=== PATIENT | male | born 1980 | race American Indian/Alaskan Native ===

== ENCOUNTER 2017-01-05 10:19 | Emergency (ER) | payer MEDICARE ==
[2017-01-05 11:24] LABS: Basophils % (Auto) 0.5 % (0.0-1.8); Eosinophils % (Auto) 1.4 % (0.0-4.3); Hematocrit 44.3 % (35.5-45.6); Mean Corpuscular HGB Conc 34 % (32-34); Mean Corpuscular Hemoglobin 30 pg (28-32); Mean Corpuscular Volume 89 fl (84-94); Platelet Count 198 K/mm3 (140-440); Red Cell Distribution Width 12.6 % (13.2-15.2); White Blood Count 6.4 K/mm3 (4.5-11.0)
[2017-01-05 11:37] LABS: Anion Gap 18 mmol/L; Blood Urea Nitrogen 12 mg/dL (9-20); Calcium 9.7 mg/dL (8.4-10.2); Carbon Dioxide 25 mmol/L (22-30); Chloride 101.7 mmol/L (98-107); Glucose 182 mg/dL (75-100); Potassium 4.6 mmol/L (3.6-5.0); Sodium 140 mmol/L (137-145)
--- NOTE | 2017-01-05 11:48 | Emergency Department Report ---
HPI - General Chief Complaint: Hyperglycemia Time Seen by Provider: 01/05/17 11:48 - HPI HPI: Patient here reports that his blood sugar was 200 home and he usually takes metformin 500 mg twice a day but he ran out. He denies any nausea vomiting or diarrhea. He also states that his ankles have been swelling for the past month on and off. Patient states that leg was terrible). He denies any swelling or redness at present. Reports that he has 2 spots to the top of his left big toe and third toe. He is wearing braces on ankle to keep swelling down. Blood sugar in triage is 178. She denies any increased urination or increased thirst. He said he sees Dr. Kaplan and the last time he saw him was 2 months ago. ED Past Medical Hx - Past Medical History Previous Medical History?: Yes Hx Diabetes: Yes Hx Psychiatric Treatment: Yes Additional medical history: UNKNOWN - Surgical History Past Surgical History?: No - Family History Family history: diabetes, hypertension - Social History Smoking Status: Former Smoker Substance Use Type: None - Medications Home Medications: Home Medications Medication Instructions Recorded Confirmed Last Taken Type Cephalexin [Keflex] 500 mg PO Q8HR #21 cap 01/05/17 Unknown Rx metFORMIN [Glucophage] 500 mg PO Q12H #60 tablet 01/05/17 Unknown Rx ED Review of Systems ROS: Stated complaint: HYPERGLYCEMIA Other details as noted in HPI Comment: All other systems reviewed and negative Constitutional: denies: chills, fever Eyes: denies: eye pain, vision change Respiratory: no symptoms reported Cardiovascular: denies: chest pain, palpitations, edema, syncope Gastrointestinal: denies: abdominal pain, nausea, vomiting, diarrhea, hematochezia Musculoskeletal: denies: back pain, joint swelling, arthralgia, myalgia Skin: rash (to left first through third toe) Neurological: denies: headache, weakness, numbness, paresthesias, confusion, abnormal gait, other Physical Exam - Physical Exam Vital Signs: Vital Signs 01/05/17 10:51 Temperature 97.8 F Pulse Rate 94 H Respiratory 18 Rate Blood Pressure 128/82 O2 Sat by Pulse 99 Oximetry General: This is a 36-year-old male well-nourished well-developed in no acute distress. Physical Exam: Head: Normocephalic atraumatic Mouth: Moist, no pharyngeal exudate or erythema. Uvula is midline and oral airway is patent. No facial swelling. No peritonsillar abscesses. Neck: Supple, no C-spine tenderness, no tracheal deviation. Nontender to palpate. no adenopathy Abdomen: Soft, nontender to palpate in all quadrants, normal bowel sounds in all quadrant and negative CVA tenderness bilaterally. Back: No vertebral or paraspinal tenderness. No saddle anesthesia. Patient able to ambulate without any difficulties. Negative SLR bilaterally. Neurological: GCS of 15, alert and oriented 3. Speech is clear and fluid. Normal gait. No motor or sensory deficit. Normal reflexes. No facial drooping. No pronator drift and negative Romberg. Eyes: Bilateral pupils equal and reactive to light, bilateral EOM intact. Bilateral sclera and conjunctiva without injection. Normal accommodation. Lungs: Clear to auscultate bilaterally no rhonchi wheezes or rales. Normal work of breathing extremity; No CCE. +2 pulses. No neurovascular compromise Cardiovascular: S1-S2, regular rate rhythm. No murmurs. Skin: Noted stage I ulcer less than 2 mm to left great and third toe. No drainage noted. Erythema without swelling. Psych: Normal mood and behavior ED Course Vital Signs 01/05/17 10:51 Temperature 97.8 F Pulse Rate 94 H Respiratory 18 Rate Blood Pressure 128/82 O2 Sat by Pulse 99 Oximetry - Reevaluation(s) Reevaluation #1: 01/05/17 13:15 Patient here complaining of high blood sugar and it was out of his blood pressure medication. Also complaining of tooth spots on his left third and first toe. He does have a primary care physician is Dr. Kaplan. ED Medical Decision Making - Lab Data Result diagrams: 01/05/17 11:03 01/05/17 11:03 Lab Results 01/05/17 01/05/17 01/05/17 Range/Units 11:03 11:03 11:03 WBC 6.4 (4.5-11.0) K/mm3 RBC 5.00 (3.65-5.03) M/mm3 Hgb 15.0 (11.8-15.2) gm/dl Hct 44.3 (35.5-45.6) % MCV 89 (84-94) fl MCH 30 (28-32) pg MCHC 34 (32-34) % RDW 12.6 L (13.2-15.2) % Plt Count 198 (140-440) K/mm3 Lymph % (Auto) 24.5 (13.4-35.0) % [place] % (Auto) 11.5 H (0.0-7.3) % Eos % (Auto) 1.4 (0.0-4.3) % Baso % (Auto) 0.5 (0.0-1.8) % Lymph # 1.6 (1.2-5.4) K/mm3 [place] # 0.7 (0.0-0.8) K/mm3 Eos # 0.1 (0.0-0.4) K/mm3 Baso # 0.0 (0.0-0.1) K/mm3 Seg Neutrophils % 62.1 (40.0-70.0) % Seg Neutrophils # 4.0 (1.8-7.7) K/mm3 VBG pH 7.365 (7.320-7.420) Sodium 140 (137-145) mmol/L Potassium 4.6 (3.6-5.0) mmol/L Chloride 101.7 (98-107) mmol/L Carbon Dioxide 25 (22-30) mmol/L Anion Gap 18 mmol/L BUN 12 (9-20) mg/dL Creatinine 0.8 (0.8-1.5) mg/dL Estimated GFR > 60 ml/min BUN/Creatinine Ratio 15.00 % Glucose 182 H (75-100) mg/dL Calcium 9.7 (8.4-10.2) mg/dL Urine Color (Yellow) Urine Turbidity (Clear) Urine pH (5.0-7.0) Ur Specific [place] (1.003-1.030) Urine Protein (Negative) mg/dL Urine Glucose (UA) (Negative) mg/dL Urine Ketones (Negative) mg/dL Urine Blood (Negative) Urine Nitrite (Negative) Urine Bilirubin (Negative) Urine Urobilinogen (<2.0) mg/dL Ur Leukocyte Esterase (Negative) Urine WBC (Auto) (0.0-6.0) /HPF Urine RBC (Auto) (0.0-6.0) /HPF U Epithel Cells (Auto) (0-13.0) /HPF Urine Mucus /HPF 01/05/17 Range/Units 11:09 WBC (4.5-11.0) K/mm3 RBC (3.65-5.03) M/mm3 Hgb (11.8-15.2) gm/dl Hct (35.5-45.6) % MCV (84-94) fl MCH (28-32) pg MCHC (32-34) % RDW (13.2-15.2) % Plt Count (140-440) K/mm3 Lymph % (Auto) (13.4-35.0) % [place] % (Auto) (0.0-7.3) % Eos % (Auto) (0.0-4.3) % Baso % (Auto) (0.0-1.8) % Lymph # (1.2-5.4) K/mm3 [place] # (0.0-0.8) K/mm3 Eos # (0.0-0.4) K/mm3 Baso # (0.0-0.1) K/mm3 Seg Neutrophils % (40.0-70.0) % Seg Neutrophils # (1.8-7.7) K/mm3 VBG pH (7.320-7.420) Sodium (137-145) mmol/L Potassium (3.6-5.0) mmol/L Chloride (98-107) mmol/L Carbon Dioxide (22-30) mmol/L Anion Gap mmol/L BUN (9-20) mg/dL Creatinine (0.8-1.5) mg/dL Estimated GFR ml/min BUN/Creatinine Ratio % Glucose (75-100) mg/dL Calcium (8.4-10.2) mg/dL Urine Color Yellow (Yellow) Urine Turbidity Clear (Clear) Urine pH 5.0 (5.0-7.0) Ur Specific [place] 1.016 (1.003-1.030) Urine Protein <15 mg/dl (Negative) mg/dL Urine Glucose (UA) >=500 (Negative) mg/dL Urine Ketones Neg (Negative) mg/dL Urine Blood Neg (Negative) Urine Nitrite Neg (Negative) Urine Bilirubin Neg (Negative) Urine Urobilinogen < 2.0 (<2.0) mg/dL Ur Leukocyte Esterase Neg (Negative) Urine WBC (Auto) 1.0 (0.0-6.0) /HPF Urine RBC (Auto) 1.0 (0.0-6.0) /HPF U Epithel Cells (Auto) 1.0 (0-13.0) /HPF Urine Mucus Few /HPF - Medical Decision Making ED course: Patient with elevated blood sugar with diabetes. He is Also stage 1 ulcer to his left foot. Patient is out of his metformin. I discussed with him all his lab results urinalysis and told him that it was stable. Patient given first dose of metformin today 500 mg in emergency room. I discussed with him that he will need to follow-up with Dr. Kaplan to call upper and discharged to schedule appointment for follow-up visit diabetes. I Also instructed him that he needs to call Dr. Shah is a lead sustainability specialist to manage his ulcer on his toes. Ulcers to left first and third toe cleansed with saline and left open to air. Patient discharged home with prescription for metformin and Keflex. Critical care attestation.: If time is entered above; I have spent that time in minutes in the direct care of this critically ill patient, excluding procedure time. ED Disposition Clinical Impression: Pressure ulcer of toe of left foot, stage 1 Diabetes mellitus with hyperglycemia Qualifiers: Diabetes mellitus type: type 2 Diabetes mellitus milieu coordinator insulin use: without longterm use Qualified Code(s): E11.65 - Type 2 diabetes mellitus with hyperglycemia Disposition: DISCHARGED TO HOME OR SELFCARE Is pt being admited?: No Does the pt Need Aspirin: No Condition: Stable Instructions: Diabetes Mellitus Type 2 in Adults (ED), Diabetic Hyperglycemia ( ED), Managing Diabetes During Sick Days (ED), How to Prevent Pressure Ulcers (ED ), Pressure Ulcer (ED), Acute Wound Care (ED) Additional Instructions: Please keep affected area to toes on left foot clean and dry. Follow up with your primary care physician and also home theater specialist as instructed Take antibiotic as prescribed. Follow-up with primary care doctor to manage her diabetes. Prescriptions: Cephalexin [Keflex] 500 mg PO Q8HR #21 cap metFORMIN [Glucophage] 500 mg PO Q12H #60 tablet Referrals: KHUSHBU KAPLAN JR, MD [Staff Physician] - 01/08/17 DEDE SHAH DPM [Staff Physician] - 01/08/17 Forms: Work/School Release Form(ED)
[2017-01-05] MEDS ORDERED: GLUCOPHAGE PO ONE (11:51)
[2017-01-05 12:00] LABS: Bilirubin,Urine NEG (Negative); Blood,Urine NEG (Negative); Ketones,Urine NEG (Negative); Leukocyte Esterase,Urine NEG (Negative); Mucus,Urine FEW /HPF; Nitrite,Urine NEG (Negative); Protein,Urine <15 mg/dL mg/dL (Negative); Urobilinogen,Urine < 2.0 mg/dL (<2.0)
[2017-01-05 13:41] VITALS: BP 122/80
== END 2017-01-05 13:42 | disposition home or self-care (01) ==
LOC: ED 10:19
DX: L89.891 Pressure ulcer of other site, stage 1 (principal); L89.621 Pressure ulcer of left heel, stage 1; Z87.891 Personal history of nicotine dependence; E11.65 Type 2 diabetes mellitus with hyperglycemia
CPT/HCPCS: 36415; 80048; 81001; 82805; 82962; 84600; 85025; 99284

== ENCOUNTER 2017-01-07 20:58 | Emergency (ER) | payer MEDICARE ==
[2017-01-07 21:18] VITALS: BP 142/88
[2017-01-07 21:43] LABS: Basophils % (Auto) 0.5 % (0.0-1.8); Eosinophils % (Auto) 0.9 % (0.0-4.3); Hematocrit 43.9 % (35.5-45.6); Hemoglobin 14.6 gm/dl (11.8-15.2); Mean Corpuscular HGB Conc 33 % (32-34); Mean Corpuscular Hemoglobin 30 pg (28-32); Mean Corpuscular Volume 90 fl (84-94); Platelet Count 205 K/mm3 (140-440); Red Blood Count 4.85 M/mm3 (3.65-5.03); Red Cell Distribution Width 12.7 % (13.2-15.2); White Blood Count 8.4 K/mm3 (4.5-11.0)
[2017-01-07 22:04] LABS: Alanine Aminotransferase 58 units/L (7-56); Albumin/Globulin Ratio 1.2 %; Alkaline Phosphatase 101 units/L (35-129); Anion Gap 19 mmol/L; BUN/Creatinine Ratio 21.81; Blood Urea Nitrogen 24 mg/dL (9-20); Calcium 8.9 mg/dL (8.4-10.2); Carbon Dioxide 22 mmol/L (22-30); Chloride 97.8 mmol/L (98-107); Glucose 156 mg/dL (75-100); Lipase 32 units/L (13-60); Potassium 4.1 mmol/L (3.6-5.0); Sodium 135 mmol/L (137-145); Total Protein 7.3 g/dL (6.3-8.2)
== END 2017-01-07 21:30 | disposition left against medical advice (07) ==
LOC: ED 20:58
DX: K92.1 Melena (principal); Z53.21 Procedure and treatment not carried out due to patient leaving prior to being seen by health care provider
CPT/HCPCS: 36415; 80053; 83690; 85025

== ENCOUNTER 2018-06-02 12:16 | Emergency (ER) | payer MEDICARE ==
[2018-06-02 12:28] VITALS: BP 147/100
[2018-06-02] MEDS ORDERED: CLEOCIN 900 MG/50 mL 900 MG/50 ML BAG IV ONE (13:13)
[2018-06-02 13:35] LABS: Basophils % (Auto) 0.3 % (0.0-1.8); Eosinophils # (Auto) 0.1 K/mm3 (0.0-0.4); Eosinophils % (Auto) 0.4 % (0.0-4.3); Hematocrit 48.5 % (35.5-45.6); Hemoglobin 16.3 gm/dl (11.8-15.2); Lymphocytes # (Auto) 1.5 K/mm3 (1.2-5.4); Lymphocytes % (Auto) 10.7 % (13.4-35.0); Mean Corpuscular HGB Conc 34 % (32-34); Mean Corpuscular Hemoglobin 30 pg (28-32); Mean Corpuscular Volume 88 fl (84-94); Monocytes # (Auto) 1.3 K/mm3 (0.0-0.8); Monocytes % (Auto) 9.4 % (0.0-7.3); Platelet Count 256 K/mm3 (140-440); Red Blood Count 5.49 M/mm3 (3.65-5.03); Red Cell Distribution Width 12.7 % (13.2-15.2)
--- NOTE | 2018-06-02 13:38 | Emergency Department Report ---
ED ENT HPI - General Chief complaint: Dental/Oral Stated complaint: TOOTH BROKEN/FACE SWOLLEN Time Seen by Provider: 06/02/18 12:57 Source: patient Mode of arrival: Ambulatory Limitations: No Limitations - History of Present Illness Initial comments: 37 yo M w/ swelling to right lower jaw. Reports associated toothache. Difficult to determine when symptoms began, pt is poor historian. MD complaint: tooth pain -: unknown Location: other (lower molars) Severity: moderate Quality: aching Improves with: none - Related Data Previous Rx's Medication Instructions Recorded Last Taken Type cephALEXin [Keflex] 500 mg PO Q8HR #21 cap 01/05/17 Unknown Rx metFORMIN [Glucophage] 500 mg PO Q12H #60 tablet 01/05/17 Unknown Rx Naproxen [Naprosyn] 500 mg PO BID #20 tablet 06/02/18 Unknown Rx Penicillin V Potassium 500 mg PO TID 10 Days #30 tablet 06/02/18 Unknown Rx Allergies Allergy/AdvReac Type Severity Reaction Status Date / Time No Known Allergies Allergy Unverified 06/13/16 12:12 ED Dental HPI - General Chief complaint: Dental/Oral Stated complaint: TOOTH BROKEN/FACE SWOLLEN Time Seen by Provider: 06/02/18 12:57 Source: patient Mode of arrival: Ambulatory Limitations: No Limitations - Related Data Previous Rx's Medication Instructions Recorded Last Taken Type cephALEXin [Keflex] 500 mg PO Q8HR #21 cap 01/05/17 Unknown Rx metFORMIN [Glucophage] 500 mg PO Q12H #60 tablet 01/05/17 Unknown Rx Naproxen [Naprosyn] 500 mg PO BID #20 tablet 06/02/18 Unknown Rx Penicillin V Potassium 500 mg PO TID 10 Days #30 tablet 06/02/18 Unknown Rx Allergies Allergy/AdvReac Type Severity Reaction Status Date / Time No Known Allergies Allergy Unverified 06/13/16 12:12 ED Review of Systems ROS: Stated complaint: TOOTH BROKEN/FACE SWOLLEN Other details as noted in HPI Constitutional: denies: fever ENT: dental pain Gastrointestinal: denies: nausea, vomiting ED Past Medical Hx - Past Medical History Hx Diabetes: Yes Hx Psychiatric Treatment: Yes (BIPOLOR DEPRESSION) Additional medical history: UNKNOWN - Social History Smoking Status: Current Every Day Smoker Substance Use Type: Alcohol - Medications Home Medications: Home Medications Medication Instructions Recorded Confirmed Last Taken Type cephALEXin [Keflex] 500 mg PO Q8HR #21 cap 01/05/17 Unknown Rx metFORMIN [Glucophage] 500 mg PO Q12H #60 tablet 01/05/17 Unknown Rx Naproxen [Naprosyn] 500 mg PO BID #20 tablet 06/02/18 Unknown Rx Penicillin V Potassium 500 mg PO TID 10 Days #30 tablet 06/02/18 Unknown Rx ED Physical Exam - General Limitations: No Limitations General appearance: alert, in no apparent distress - Head Head exam: Present: atraumatic, normocephalic - Eye Eye exam: Present: normal appearance - ENT ENT exam: Present: other (poor dentition, caries noted to teeth #29, 30, 31, associated airway intact, no elevation of tongue from floor of mouth) - Neck Neck exam: Present: other (swelling to right jaw; no induration of neck) - Respiratory Respiratory exam: Present: normal lung sounds bilaterally. Absent: respiratory distress - Cardiovascular Cardiovascular Exam: Present: normal rhythm, tachycardia - Neurological Exam Neurological exam: Present: alert, other (speech is incomprehensible at times, however, when prompting pt to slow down and repeat himself, better able to understand what he is saying) - Psychiatric Psychiatric exam: Present: normal affect, normal mood. Absent: agitated, anxious - Skin Skin exam: Present: warm, dry, intact, normal color. Absent: rash ED Course Vital Signs 06/02/18 12:24 Temperature 97.9 F Pulse Rate 112 H Respiratory 18 Rate Blood Pressure 147/100 O2 Sat by Pulse 95 Oximetry ED Medical Decision Making - Lab Data Result diagrams: 06/02/18 13:16 06/02/18 13:16 - Radiology Data Radiology results: report reviewed - Medical Decision Making 37 yo M w/ right jaw swelling. Pt slightly tachycardic, afebrile, with mildly elevated WBCs. CT shows no abscess, only soft tissue swelling. IV clindamycin given here in ED. Pt appears nontoxic. Pt given rx for Pen VK. Referral to [facility] dental clinic given. - Differential Diagnosis dental abscess, dental caries, cellulitis Critical care attestation.: If time is entered above; I have spent that time in minutes in the direct care of this critically ill patient, excluding procedure time. ED Disposition Clinical Impression: Facial cellulitis, Dental caries Disposition: TO HOME OR SELFCARE Is pt being admited?: No Condition: Stable Instructions: Dental Caries (ED), Toothache (ED) Prescriptions: Naproxen [Naprosyn] 500 mg PO BID #20 tablet Penicillin V Potassium 500 mg PO TID 10 Days #30 tablet Referrals: PRIMARY CARE,MD [Primary Care Provider] - 3-5 Days [facility] [Outside] - 3-5 Days Time of Disposition: 15:17
[2018-06-02 13:52] LABS: BUN/Creatinine Ratio 9; Blood Urea Nitrogen 8 mg/dL (9-20); Hemolysis Index 2
--- NOTE | 2018-06-02 15:11 | Cat Scan Report ---
FINAL REPORT PROCEDURE: CT NECK W CON TECHNIQUE: Computerized axial tomography of the soft tissue neck was performed following the IV injection of iodinated nonionic contrast. HISTORY: right jaw swelling COMPARISON: No prior studies are available for comparison. FINDINGS: There is no evidence of fracture. There is anterior translation of the mandibular condyles with the mouth closed. Condyles are not seated in the temporal fossa. Severe dental disease is present with large erosions in multiple teeth in the right and left side of the mandible. There are small erosions adjacent to the roots of several of the teeth in the right side of the mandible. There is marked soft tissue swelling adjacent to the right side of the mandible seen on image 58 series 2 extending over approximately 2.2 x 4.0 centimeters. I do not see a discrete fluid collection that would suggest an abscess at this time. The thyroid gland, the larynx, the submandibular glands and the parotid glands show no focal abnormalities. The parapharyngeal spaces are symmetric and show no abnormality. The prevertebral soft tissues appear normal. Moderate degenerative disc changes seen in the mid cervical spine. Minimal nodular mucosal thickening seen in the floor of the right maxillary sinus. Paranasal sinuses otherwise are clear. IMPRESSION: Large amount of soft tissue swelling seen along the right side of the mandible as described. I do not see a discrete abscess at this time. Severe dental disease present throughout the right and left side of the mandible as described greater on the right than the left. I suspect the inflammatory changes related to dental disease. No fracture is seen however there is anterior translocation of the mandibular condyles bilaterally with the mouth closed. This represents abnormal alignment. No fracture of the mandible is visualized.
== END 2018-06-02 15:31 | disposition home or self-care (01) ==
LOC: ED 12:16
DX: L03.211 Cellulitis of face (principal); K02.9 Dental caries, unspecified; E11.9 Type 2 diabetes mellitus without complications; F17.200 Nicotine dependence, unspecified, uncomplicated
CPT/HCPCS: 36415; 70491; 80048; 85025; 96365; 99284; Q9967

== ENCOUNTER 2019-01-13 11:51 | Emergency (ER) | payer MEDICARE ==
--- NOTE | 2019-01-13 12:16 | Emergency Department Report ---
ED ENT HPI - General Chief complaint: Dental/Oral Stated complaint: RT JAW PAIN/SWELLING Time Seen by Provider: 01/13/19 12:11 Source: patient Mode of arrival: Ambulatory Limitations: No Limitations - History of Present Illness Initial comments: This is a 38-year-old male nontoxic well in appearance with no signs of distress presents to the ED with complaint of toothache. Patient stated has some facial swelling to right lower mandible area. Denies following up with a dentist. Denies any fever, chills, headache, nausea, vomiting, chest pain or SOB. Denies any other complaints. Denies any allergies. MD complaint: tooth pain -: days(s) Location: tooth # 1 - dental caries present Severity: mild Severity scale (0 -10): 8 Quality: aching Consistency: constant Improves with: none Worsens with: none Context- Dental: history of dental caries, poor dental care Associated Symptoms: gum swelling, toothache. denies: fever, cough, pain with swallowing, sore throat, tinnitus, hearing loss, discharge from ear, rhinorrhea - Related Data Previous Rx's Medication Instructions Recorded Last Taken Type cephALEXin [Keflex] 500 mg PO Q8HR #21 cap 01/05/17 Unknown Rx metFORMIN [Glucophage] 500 mg PO Q12H #60 tablet 01/05/17 Unknown Rx Naproxen [Naprosyn] 500 mg PO BID #20 tablet 06/02/18 Unknown Rx Penicillin V Potassium 500 mg PO TID 10 Days #30 tablet 06/02/18 Unknown Rx ALBUTEROL Inhaler (OR & NICU) 2 puff IH QID PRN #1 inhalation 06/09/18 Unknown Rx [Proair] Azithromycin [Zithromax Z-AMIRAH] 0 mg PO DAILY #6 tab 06/09/18 Unknown Rx Acetaminophen/Codeine [Tylenol 1 tab PO Q6H PRN #12 tab 01/13/19 Unknown Rx /Codeine # 3 tab] Chlorhexidine Mouthwash [Peridex] 15 ml MM BID #1 bottle 01/13/19 Unknown Rx Clindamycin [Clindamycin CAP] 300 mg PO Q8H #21 cap 01/13/19 Unknown Rx Allergies Allergy/AdvReac Type Severity Reaction Status Date / Time No Known Allergies Allergy Verified 06/08/18 18:43 ED Dental HPI - General Chief complaint: Dental/Oral Stated complaint: RT JAW PAIN/SWELLING Time Seen by Provider: 01/13/19 12:11 Source: patient Mode of arrival: Ambulatory Limitations: No Limitations - Related Data Previous Rx's Medication Instructions Recorded Last Taken Type cephALEXin [Keflex] 500 mg PO Q8HR #21 cap 01/05/17 Unknown Rx metFORMIN [Glucophage] 500 mg PO Q12H #60 tablet 01/05/17 Unknown Rx Naproxen [Naprosyn] 500 mg PO BID #20 tablet 06/02/18 Unknown Rx Penicillin V Potassium 500 mg PO TID 10 Days #30 tablet 06/02/18 Unknown Rx ALBUTEROL Inhaler (OR & NICU) 2 puff IH QID PRN #1 inhalation 06/09/18 Unknown Rx [Proair] Azithromycin [Zithromax Z-AMIRAH] 0 mg PO DAILY #6 tab 06/09/18 Unknown Rx Acetaminophen/Codeine [Tylenol 1 tab PO Q6H PRN #12 tab 01/13/19 Unknown Rx /Codeine # 3 tab] Chlorhexidine Mouthwash [Peridex] 15 ml MM BID #1 bottle 01/13/19 Unknown Rx Clindamycin [Clindamycin CAP] 300 mg PO Q8H #21 cap 01/13/19 Unknown Rx Allergies Allergy/AdvReac Type Severity Reaction Status Date / Time No Known Allergies Allergy Verified 06/08/18 18:43 ED Review of Systems ROS: Stated complaint: RT JAW PAIN/SWELLING Other details as noted in HPI Constitutional: denies: chills, fever Eyes: denies: eye pain, eye discharge, vision change ENT: dental pain. denies: ear pain, throat pain Respiratory: denies: cough, shortness of breath, wheezing Cardiovascular: denies: chest pain, palpitations Endocrine: no symptoms reported Gastrointestinal: denies: abdominal pain, nausea, diarrhea Genitourinary: denies: urgency, dysuria Musculoskeletal: denies: back pain, joint swelling, arthralgia Skin: denies: rash, lesions Neurological: denies: headache, weakness, paresthesias Psychiatric: denies: anxiety, depression Hematological/Lymphatic: denies: easy bleeding, easy bruising ED Past Medical Hx - Past Medical History Previous Medical History?: Yes Hx Diabetes: Yes Hx Psychiatric Treatment: Yes (BIPOLOR DEPRESSION) Additional medical history: UNKNOWN - Surgical History Past Surgical History?: No - Social History Smoking Status: Current Every Day Smoker Substance Use Type: None - Medications Home Medications: Home Medications Medication Instructions Recorded Confirmed Last Taken Type cephALEXin [Keflex] 500 mg PO Q8HR #21 cap 01/05/17 Unknown Rx metFORMIN [Glucophage] 500 mg PO Q12H #60 tablet 01/05/17 Unknown Rx Naproxen [Naprosyn] 500 mg PO BID #20 tablet 06/02/18 Unknown Rx Penicillin V Potassium 500 mg PO TID 10 Days #30 tablet 06/02/18 Unknown Rx ALBUTEROL Inhaler (OR & NICU) 2 puff IH QID PRN #1 inhalation 06/09/18 Unknown Rx [Proair] Azithromycin [Zithromax Z-AMIRAH] 0 mg PO DAILY #6 tab 06/09/18 Unknown Rx Acetaminophen/Codeine [Tylenol 1 tab PO Q6H PRN #12 tab 01/13/19 Unknown Rx /Codeine # 3 tab] Chlorhexidine Mouthwash [Peridex] 15 ml MM BID #1 bottle 01/13/19 Unknown Rx Clindamycin [Clindamycin CAP] 300 mg PO Q8H #21 cap 01/13/19 Unknown Rx ED Physical Exam - General Limitations: No Limitations General appearance: alert, in no apparent distress - Head Head exam: Present: atraumatic, normocephalic - Expanded ENT Exam Expanded Ear exam: Present: normal external inspection Mouth exam: Present: normal external inspection. Absent: drooling, trismus, muffled voice Teeth exam: Present: dental caries, fractured tooth #, dental tenderness #, gingival enlargement, other (no induration or flutance. no pus or draiange.) 1 - Fractured, Dental Tenderness Throat exam: Positive: normal inspection, other (uvula midline.). Negative: tonsillar erythema, tonsillomegaly, tonsillar exudate, R peritonsillar mass, L p eritonsillar mass - Neck Neck exam: Present: normal inspection, full ROM. Absent: tenderness, meningismus, lymphadenopathy - Extremities Exam Extremities exam: Present: normal inspection, full ROM - Back Exam Back exam: Present: normal inspection, full ROM - Neurological Exam Neurological exam: Present: alert, oriented X3 - Psychiatric Psychiatric exam: Present: normal affect, normal mood - Skin Skin exam: Present: warm, dry, intact, normal color. Absent: rash ED Course - Reevaluation(s) Reevaluation #1: 01/13/19 12:15 Patient is speaking in full sentences with no signs of distress noted. ED Medical Decision Making - Medical Decision Making Patient was instructed to Follow-up with a oral surgeon doctor in 24 hours or if symptoms worsen and continue return to emergency room as soon as possible. At time of discharge, the patient does not seem toxic or ill in appearance. No acute signs of distress noted. Patient agrees to discharge treatment plan of care. No further questions noted by the patient. Critical care attestation.: If time is entered above; I have spent that time in minutes in the direct care of this critically ill patient, excluding procedure time. ED Disposition Clinical Impression: Dental caries, Gingivitis Disposition: DC- TO HOME OR SELFCARE Is pt being admited?: No Does the pt Need Aspirin: No Condition: Stable Instructions: Dental Caries (ED), Gingivitis (ED), Acetaminophen/Codeine (By mouth) Additional Instructions: Follow-up with a oral surgeon doctor in 24 hours or if symptoms worsen and continue return to emergency room as soon as possible. 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
[2019-01-13 12:18] VITALS: BP 122/84
== END 2019-01-13 12:42 | disposition home or self-care (01) ==
LOC: ED 11:51
DX: K05.10 Chronic gingivitis, plaque induced (principal); K02.9 Dental caries, unspecified; E11.9 Type 2 diabetes mellitus without complications; F17.200 Nicotine dependence, unspecified, uncomplicated
CPT/HCPCS: 99282